=== PATIENT | male | born 1960 | race Caucasian/White ===

== ENCOUNTER 2024-05-27 05:56 | Day surgery (SDC) | payer OTHER ==
[2024-05-27] MEDS ORDERED: Propofol 200 MG/20 ML SDV IV ONE (05:57)
[2024-05-27] MEDS ORDERED: Lidocaine 2% 100 MG/5 ML Syringe IVPUSH ONE (05:57)
[2024-05-27] MEDS ORDERED: Sodium Chloride 0.9% 10 ML Syringe FLUSH PRN (06:15)
[2024-05-27] MEDS: Lactated Ringers 1,000 ML IV SCH (07:05)
[2024-05-27] MEDS: Simethicone Drops 40 MG/0.6 ML 30 ML Bottle ONE (07:26)
== END 2024-05-27 08:52 | disposition home or self-care (01) ==
LOC: FB.SDS 05:56
PROVIDERS: ATTEND Surgery
DX: Z12.11 Encounter for screening for malignant neoplasm of colon (principal); K63.5 Polyp of colon; K62.1 Rectal polyp; Z87.891 Personal history of nicotine dependence
CPT/HCPCS: 00811; 82947; 88305; A9270-GY; J2704; J7120